=== PATIENT | female | born 1945 | race Caucasian/White ===

== ENCOUNTER 2016-07-12 22:04 | Inpatient (IN) | payer MEDICARE, MEDICAID ==
[~2016-07-12] VITALS: Ht 162.6 cm; Wt 64.0 kg
[2016-07-12 21:50] VITALS: BP 113/62
[2016-07-12 21:55] VITALS: BP 113/62
[2016-07-12] MEDS ORDERED: LACTULOSE 20G/30ML UDC PO NR (22:30)
[2016-07-12] MEDS ORDERED: BISACODYL 10MG SUPP PR NR (22:30)
[2016-07-13] MEDS: CLONAZEPAM 1MG TABLET PO SCH ×3 (00:04→20:42)
[2016-07-13 06:41] LABS: HEMATOCRIT. 35.5 % (36.0-48.0); HEMOGLOBIN. 11.8 g/dL (12.0-16.0); MEAN CORPUSCULAR HEMOGLOBIN 29.5 pg (28.0-32.0); MEAN CORPUSCULAR HGB CONC 33.3 g/dL (31.0-37.0); MEAN CORPUSCULAR VOLUME 88.5 fL (81.0-99.0); MEAN PLATELET VOLUME 8.4 fl (7.4-10.4); PLATELET 243 x1000/uL (130-400); RED CELL DISTRIBUTION WIDTH 14.4 % (11.6-14.6); WHITE BLOOD COUNT 10.2 x1000/uL (4.5-11.0)
[2016-07-13 07:07] LABS: DIFFERENTIAL COMMENT 1
[2016-07-13 07:12] LABS: ALANINE AMINOTRANSFERASE 25 IU/L (13-61); ANION GAP 12; CALCIUM 8.4 mg/dL (8.5-10.1); CARBON DIOXIDE 30 mEq/L (21-32); CHLORIDE 102 mEq/L (98-107); INDEX HEMOLYSI 1 (1-3); INDEX ICTERIC 1 (1-4); INDEX LIPEMIC 1 (1-3); PREALBUMIN 14.6 mg/dL (20.0-40.0); UREA NITROGEN BLOOD 22 mg/dL (7-21); eGFR > 60 mL/min (>60)
[2016-07-13 08:00] VITALS: BP 127/76
[2016-07-13] MEDS: NITROFURANTOIN 100MG M/M CAPSULE PO SCH ×2 (08:30→19:12)
[2016-07-13] MEDS: PREDNISONE 20MG TABLET PO SCH (08:30)
[2016-07-13] MEDS: METFORMIN HCL 500MG TABLET PO SCH ×2 (08:31→17:00)
[2016-07-13] MEDS: DOCUSATE SODIUM 100MG CAPSULE PO SCH ×2 (08:31→17:00)
[2016-07-13 10:20] LABS: PLATELET ESTIMATE NORMAL
[2016-07-13] MEDS ORDERED: POTASSIUM CHLORIDE 20MEQ TABLET SR PO NR (11:30)
[2016-07-13] MEDS: OMEPRAZOLE 20MG CAPSULE EXTENDED RELEASE PO SCH (12:06)
[2016-07-13] MEDS ORDERED: DEXTROSE 50% WATER 50ML SYRINGE IV PRN (13:45)
[2016-07-13] MEDS: INSULIN LISPRO 100 UNITS/ML SUBCUT SCH ×2 (17:00→21:00)
[2016-07-13] MEDS: BLOOD SUGAR DIAGNOSTIC STRIP TEST SCH ×2 (17:00→20:42)
[2016-07-13] MEDS ORDERED: P20 PO (18:20)
[2016-07-13] MEDS ORDERED: OMEP20TA15 PO (18:20)
[2016-07-13 20:00] VITALS: BP 107/57
[2016-07-14] MEDS: OMEPRAZOLE 20MG CAPSULE EXTENDED RELEASE PO SCH (06:13)
[2016-07-14] MEDS: BLOOD SUGAR DIAGNOSTIC STRIP TEST SCH ×4 (06:13→21:00)
[2016-07-14] MEDS: INSULIN LISPRO 100 UNITS/ML SUBCUT SCH ×4 (07:30→21:00)
[2016-07-14 08:00] VITALS: BP 106/58
[2016-07-14] MEDS: CLONAZEPAM 1MG TABLET PO SCH ×2 (09:00→22:14)
[2016-07-14] MEDS: METFORMIN HCL 500MG TABLET PO SCH ×2 (09:00→17:00)
[2016-07-14] MEDS: DOCUSATE SODIUM 100MG CAPSULE PO SCH ×2 (09:00→17:00)
[2016-07-14 09:16] VITALS: BP 74/38
[2016-07-14] MEDS: PREDNISONE 20MG TABLET PO SCH (09:42)
[2016-07-14] MEDS: NITROFURANTOIN 100MG M/M CAPSULE PO SCH ×2 (09:43→17:00)
[2016-07-14] MEDS ORDERED: SODIUM CHLORIDE 0.9% 250 ML IV ONE ×2 (10:15→10:22)
[2016-07-14 11:18] VITALS: BP 96/47
[2016-07-14 11:52] VITALS: BP 104/59
[2016-07-14] MEDS ORDERED: SODIUM CHLORIDE 0.9% 250 ML IV SCH (12:00)
[2016-07-14] MEDS ORDERED: SODIUM CHLORIDE 0.9% 1,000 ML IV SCH (12:45)
[2016-07-14] MEDS ORDERED: CLONAZEPAM 1MG TABLET PO SCH (17:00)
[2016-07-14] MEDS: LACTOBACILLUS GG CAPSULE PO SCH (17:41)
[2016-07-14 18:20] LABS: CLARITY URINE CLEAR (CLEAR); COLOR URINE YELLOW (YELLOW); GLUCOSE URINE NEGATIVE (NEGATIVE); KETONES URINE NEGATIVE (NEGATIVE); LEUKOCYTE ESTERASE URINE 3+ (NEGATIVE); NITRITE URINE NEGATIVE (NEGATIVE); OCCULT BLOOD URINE NEGATIVE (NEGATIVE); PH URINE 6.5 (4.5-8.0); PROTEIN URINE NEGATIVE (NEGATIVE); SPECIFIC GRAVITY URINE 1.005 (1.005-1.030)
[2016-07-14 20:00] VITALS: BP 115/56
[2016-07-14 20:07] LABS: RBC URINE 0-2 /hpf (0-2)
[2016-07-14 20:13] LABS: BACTERIA URINE 2+
[2016-07-14 20:14] LABS: SQUAMOUS EPITHELIAL CELL URINE FEW /lpf (RARE/1+)
[2016-07-15] MEDS: BLOOD SUGAR DIAGNOSTIC STRIP TEST SCH ×4 (06:18→20:42)
[2016-07-15] MEDS: FAMOTIDINE 20MG TABLET PO SCH (06:22)
[2016-07-15] MEDS: INSULIN LISPRO 100 UNITS/ML SUBCUT SCH ×4 (06:22→20:42)
[2016-07-15 07:34] LABS: HEMATOCRIT. 32.5 % (36.0-48.0); HEMOGLOBIN. 10.9 g/dL (12.0-16.0); MEAN CORPUSCULAR HEMOGLOBIN 29.8 pg (28.0-32.0); MEAN CORPUSCULAR HGB CONC 33.5 g/dL (31.0-37.0); MEAN CORPUSCULAR VOLUME 89.1 fL (81.0-99.0); PLATELET 209 x1000/uL (130-400); RED BLOOD CELL COUNT 3.64 mill/uL (4.2-5.4); RED CELL DISTRIBUTION WIDTH 14.5 % (11.6-14.6); WHITE BLOOD COUNT 8.9 x1000/uL (4.5-11.0)
[2016-07-15 07:37] LABS: DIFFERENTIAL COMMENT 1
[2016-07-15 08:00] VITALS: BP 108/49
[2016-07-15 08:08] LABS: ANION GAP 12; CARBON DIOXIDE 26 mEq/L (21-32); CHLORIDE 103 mEq/L (98-107); INDEX HEMOLYSI 1 (1-3); INDEX ICTERIC 1 (1-4); INDEX LIPEMIC 1 (1-3); MAGNESIUM 2.2 mg/dL (1.8-2.4); UREA NITROGEN BLOOD 14 mg/dL (7-21)
[2016-07-15 08:11] LABS: FERRITIN 69 ng/mL (10-291)
[2016-07-15 08:22] LABS: IRON 63 ug/dL (50-175); TOTAL IRON BINDING CAPACITY 207 ug/dL (250-450); eGFR > 60 mL/min (>60)
[2016-07-15 08:28] LABS: PLATELET ESTIMATE NORMAL
[2016-07-15] MEDS ORDERED: POTASSIUM CHLORIDE 20MEQ TABLET SR PO SCH (09:00)
[2016-07-15] MEDS: NITROFURANTOIN 100MG M/M CAPSULE PO SCH ×2 (09:00→17:00)
[2016-07-15] MEDS: METFORMIN HCL 500MG TABLET PO SCH ×2 (09:00→17:00)
[2016-07-15] MEDS: DOCUSATE SODIUM 100MG CAPSULE PO SCH ×2 (09:09→17:03)
[2016-07-15] MEDS: PREDNISONE 20MG TABLET PO SCH (09:09)
[2016-07-15] MEDS: LACTOBACILLUS GG CAPSULE PO SCH (09:10)
[2016-07-15] MEDS ORDERED: POTASSIUM CHLORIDE 20MEQ TABLET SR PO ONE (09:30)
[2016-07-15 14:16] LABS: INDEX HEMOLYSI 1 (1-3)
[2016-07-15 14:39] LABS: VITAMIN B12 SERUM 618 pg/mL (211-911)
[2016-07-15 14:52] LABS: FOLIC ACID (FOLATE) SERUM > 20.00 ng/mL (>5.38)
[2016-07-15] MEDS: BISACODYL 10MG SUPP PR PRN (16:48)
[2016-07-15 20:00] VITALS: BP 98/52
[2016-07-15] MEDS: CLONAZEPAM 1MG TABLET PO SCH (20:39)
[2016-07-15] MEDS: ZOLPIDEM TARTRATE 5MG TABLET PO PRN (22:12)
[2016-07-16] MEDS: FAMOTIDINE 20MG TABLET PO SCH (06:23)
[2016-07-16] MEDS: BLOOD SUGAR DIAGNOSTIC STRIP TEST SCH ×4 (06:23→21:10)
[2016-07-16 06:50] LABS: HEMATOCRIT. 32.4 % (36.0-48.0); HEMOGLOBIN. 11.2 g/dL (12.0-16.0); MEAN CORPUSCULAR HEMOGLOBIN 30.7 pg (28.0-32.0); MEAN CORPUSCULAR HGB CONC 34.5 g/dL (31.0-37.0); MEAN PLATELET VOLUME 8.2 fl (7.4-10.4); PLATELET 197 x1000/uL (130-400); RED BLOOD CELL COUNT 3.64 mill/uL (4.2-5.4); RED CELL DISTRIBUTION WIDTH 14.7 % (11.6-14.6); WHITE BLOOD COUNT 8.9 x1000/uL (4.5-11.0)
[2016-07-16] MEDS: INSULIN LISPRO 100 UNITS/ML SUBCUT SCH ×4 (07:20→21:20)
[2016-07-16 07:33] LABS: DIFFERENTIAL COMMENT 1
[2016-07-16 08:00] VITALS: BP 89/49
[2016-07-16 08:01] LABS: CHLORIDE 105 mEq/L (98-107); INDEX HEMOLYSI 1 (1-3); INDEX ICTERIC 1 (1-4); INDEX LIPEMIC 1 (1-3)
[2016-07-16 08:09] LABS: ANION GAP 13; CALCIUM 8.1 mg/dL (8.5-10.1); CARBON DIOXIDE 24 mEq/L (21-32); UREA NITROGEN BLOOD 16 mg/dL (7-21); eGFR > 60 mL/min (>60)
[2016-07-16] MEDS: METFORMIN HCL 500MG TABLET PO SCH ×2 (09:00→17:00)
[2016-07-16] MEDS: NITROFURANTOIN 100MG M/M CAPSULE PO SCH ×2 (09:00→17:00)
[2016-07-16] MEDS: PREDNISONE 20MG TABLET PO SCH (09:15)
[2016-07-16] MEDS: LACTOBACILLUS GG CAPSULE PO SCH (09:16)
[2016-07-16] MEDS: DOCUSATE SODIUM 100MG CAPSULE PO SCH ×2 (09:16→17:40)
[2016-07-16 12:49] LABS: PLATELET ESTIMATE NORMAL
[2016-07-16 19:00] VITALS: BP 91/64
[2016-07-16] MEDS: CLONAZEPAM 1MG TABLET PO SCH (21:10)
[2016-07-16] MEDS: ZOLPIDEM TARTRATE 5MG TABLET PO PRN (22:32)
[2016-07-17] MEDS: BLOOD SUGAR DIAGNOSTIC STRIP TEST SCH ×4 (06:15→21:00)
[2016-07-17] MEDS: FAMOTIDINE 20MG TABLET PO SCH (06:16)
[2016-07-17] MEDS: INSULIN LISPRO 100 UNITS/ML SUBCUT SCH ×4 (06:17→21:04)
[2016-07-17 08:00] VITALS: BP 96/68
[2016-07-17] MEDS: METFORMIN HCL 500MG TABLET PO SCH ×2 (09:00→16:58)
[2016-07-17] MEDS: LACTOBACILLUS GG CAPSULE PO SCH (09:03)
[2016-07-17] MEDS: PREDNISONE 20MG TABLET PO SCH (09:03)
[2016-07-17] MEDS: DOCUSATE SODIUM 100MG CAPSULE PO SCH ×2 (09:03→16:58)
[2016-07-17 20:00] VITALS: BP 102/57
[2016-07-17] MEDS: CLONAZEPAM 1MG TABLET PO SCH (21:00)
[2016-07-17] MEDS: ZOLPIDEM TARTRATE 5MG TABLET PO PRN (21:58)
[2016-07-18] MEDS: BLOOD SUGAR DIAGNOSTIC STRIP TEST SCH ×4 (06:32→21:00)
[2016-07-18] MEDS: FAMOTIDINE 20MG TABLET PO SCH (06:33)
[2016-07-18] MEDS: INSULIN LISPRO 100 UNITS/ML SUBCUT SCH ×4 (06:39→21:00)
[2016-07-18 08:00] VITALS: BP 95/48
[2016-07-18] MEDS: DOCUSATE SODIUM 100MG CAPSULE PO SCH ×2 (08:26→18:11)
[2016-07-18] MEDS: LACTOBACILLUS GG CAPSULE PO SCH (08:26)
[2016-07-18] MEDS: PREDNISONE 10MG TABLET PO SCH (08:27)
[2016-07-18] MEDS: METFORMIN HCL 500MG TABLET PO SCH ×2 (08:27→17:00)
[2016-07-18] MEDS ORDERED: LACTULOSE 20G/30ML UDC PO NR (13:30)
[2016-07-18] MEDS: BISACODYL 10MG SUPP PR PRN (18:11)
[2016-07-18 20:00] VITALS: BP 87/58
[2016-07-18] MEDS: ZOLPIDEM TARTRATE 5MG TABLET PO PRN (21:57)
[2016-07-18] MEDS: CLONAZEPAM 1MG TABLET PO SCH (21:57)
[2016-07-19] MEDS: BLOOD SUGAR DIAGNOSTIC STRIP TEST SCH ×4 (06:30→21:00)
[2016-07-19 06:59] LABS: BASOPHILS % 0.2 % (0.0-2.0); EOSINOPHILS % 1.8 % (0.0-5.0); HEMATOCRIT. 32.6 % (36.0-48.0); HEMOGLOBIN. 10.9 g/dL (12.0-16.0); LYMPHOCYTES % 37.8 % (20.0-50.0); MEAN CORPUSCULAR HGB CONC 33.4 g/dL (31.0-37.0); MEAN CORPUSCULAR VOLUME 89.7 fL (81.0-99.0); MEAN PLATELET VOLUME 8.3 fl (7.4-10.4); MONOCYTES % 6.7 % (2.0-8.0); NEUTROPHILS % 53.5 % (40.0-76.0); PLATELET 203 x1000/uL (130-400); RED BLOOD CELL COUNT 3.64 mill/uL (4.2-5.4); RED CELL DISTRIBUTION WIDTH 15.2 % (11.6-14.6); WHITE BLOOD COUNT 6.6 x1000/uL (4.5-11.0)
[2016-07-19 07:19] LABS: ANION GAP 11; CALCIUM 8.4 mg/dL (8.5-10.1); CARBON DIOXIDE 25 mEq/L (21-32); CHLORIDE 108 mEq/L (98-107); INDEX HEMOLYSI 1 (1-3); INDEX ICTERIC 1 (1-4); INDEX LIPEMIC 1 (1-3); UREA NITROGEN BLOOD 15 mg/dL (7-21); eGFR > 60 mL/min (>60)
[2016-07-19 08:00] VITALS: BP 104/50
[2016-07-19] MEDS: DOCUSATE SODIUM 100MG CAPSULE PO SCH ×2 (08:28→17:02)
[2016-07-19] MEDS: LACTOBACILLUS GG CAPSULE PO SCH (08:28)
[2016-07-19] MEDS: PREDNISONE 10MG TABLET PO SCH (08:28)
[2016-07-19] MEDS: INSULIN LISPRO 100 UNITS/ML SUBCUT SCH ×4 (08:29→21:00)
[2016-07-19] MEDS: METFORMIN HCL 500MG TABLET PO SCH ×2 (08:29→17:00)
[2016-07-19 20:00] VITALS: BP 97/57
[2016-07-19] MEDS: CLONAZEPAM 1MG TABLET PO SCH (22:04)
[2016-07-19] MEDS: ZOLPIDEM TARTRATE 5MG TABLET PO PRN (22:26)
[2016-07-20] MEDS: BLOOD SUGAR DIAGNOSTIC STRIP TEST SCH ×4 (06:32→20:31)
[2016-07-20] MEDS: FAMOTIDINE 20MG TABLET PO SCH ×2 (06:32→07:13)
[2016-07-20 08:00] VITALS: BP 102/58
[2016-07-20] MEDS: PREDNISONE 10MG TABLET PO SCH (08:26)
[2016-07-20] MEDS: LACTOBACILLUS GG CAPSULE PO SCH (08:26)
[2016-07-20] MEDS: DOCUSATE SODIUM 100MG CAPSULE PO SCH ×2 (08:26→16:58)
[2016-07-20] MEDS: METFORMIN HCL 500MG TABLET PO SCH ×2 (08:28→16:58)
[2016-07-20] MEDS: INSULIN LISPRO 100 UNITS/ML SUBCUT SCH ×4 (08:28→20:32)
[2016-07-20] MEDS: BISACODYL 10MG SUPP PR PRN (16:58)
[2016-07-20 17:07] LABS: 25-HYDROXY VITAMIN D3 9.8 ng/mL (.)
[2016-07-20 20:00] VITALS: BP 102/55
[2016-07-20] MEDS ORDERED: ZOLPIDEM TARTRATE 5MG TABLET PO PRN (20:15)
[2016-07-20] MEDS ORDERED: CLONAZEPAM 1MG TABLET PO SCH (21:00)
[2016-07-21] MEDS: INSULIN LISPRO 100 UNITS/ML SUBCUT SCH ×2 (06:14→12:40)
[2016-07-21] MEDS: FAMOTIDINE 20MG TABLET PO SCH (06:14)
[2016-07-21] MEDS: BLOOD SUGAR DIAGNOSTIC STRIP TEST SCH ×2 (06:14→11:15)
[2016-07-21] MEDS ORDERED: ERGOCALCIFEROL 50000UNITS CAPSULE PO NR (07:27)
[2016-07-21 08:00] VITALS: BP 127/87
[2016-07-21] MEDS: METFORMIN HCL 500MG TABLET PO SCH (09:00)
[2016-07-21] MEDS: DOCUSATE SODIUM 100MG CAPSULE PO SCH (09:00)
[2016-07-21] MEDS: LACTOBACILLUS GG CAPSULE PO SCH (09:13)
[2016-07-21] MEDS: PREDNISONE 10MG TABLET PO SCH (09:13)
[2016-07-21] MEDS ORDERED: ERGO500043 PO (12:04)
[2016-07-21 12:12] VITALS: BP 124/83
[2016-07-23] MEDS ORDERED: PREDNISONE 20MG TABLET PO SCH (09:00)
[2016-07-28] MEDS ORDERED: PREDNISONE 10MG TABLET PO SCH (09:00)
[2016-08-02] MEDS ORDERED: PREDNISONE 20MG TABLET PO SCH (09:00)
[2016-08-07] MEDS ORDERED: PREDNISONE 10MG TABLET PO SCH (09:00)
== END 2016-07-21 17:00 | disposition home or self-care (01) | DRG 58 ==
PROVIDERS: ADMIT Physical Medicine & Rehabilitation Spinal Cord Injury Medicine; ATTEND Family Medicine Adult Medicine
DX: G36.0 Neuromyelitis optica [Devic] (principal); G82.50 Quadriplegia, unspecified; N39.0 Urinary tract infection, site not specified; E44.0 Moderate protein-calorie malnutrition; D64.9 Anemia, unspecified; E05.00 Thyrotoxicosis with diffuse goiter without thyrotoxic crisis or storm; E11.9 Type 2 diabetes mellitus without complications; E86.0 Dehydration; E87.6 Hypokalemia; F32.9 Major depressive disorder, single episode, unspecified; G35 Multiple sclerosis; H54.7 Unspecified visual loss; M54.5 Low back pain; G89.29 Other chronic pain; B96.89 Other specified bacterial agents as the cause of diseases classified elsewhere; I10 Essential (primary) hypertension; R82.71 Bacteriuria; E55.9 Vitamin D deficiency, unspecified; R13.10 Dysphagia, unspecified; Z68.24 Body mass index [BMI] 24.0-24.9, adult; Z99.3 Dependence on wheelchair; Z88.0 Allergy status to penicillin
CPT/HCPCS: 36415; 80048; 80053; 81001; 82270; 82306; 82607; 82728; 82746; 82962; 83036; 83540; 83550; 83735; 84100; 84134; 84443; 84630; 85025; 87077; 87086; 87186; 93970; 97110; 97112; 97163; 97167; 97530; 97535; A4565; C1893; J1815; J7030; J7050; J7512; A5200